=== PATIENT | male | born 1960 | race Two or more races ===

== ENCOUNTER 2017-01-11 06:42 | Emergency (ER) | payer MEDICAID ==
[~2017-01-11] VITALS: Ht 170.2 cm; Wt 121.1 kg
[~2017-01-11 06:42] MED LIST: AMLO5TAB2 PO; ASPI81TA27 PO; ENAL2.5T PO; HYDR25TA4 PO
[2017-01-11 08:38] LABS: Basophils # (auto) 0.1 uL; Basophils % (auto) 1.1 % (0.0-2.0); Eosinophils # (auto) 0.3 uL; Eosinophils % (auto) 3.9 % (0.0-7.0); Hematocrit 47.8 % (41.0-53.0); Hemoglobin 16.1 g/dL (13.5-17.5); Lymphocytes # (auto) 1.6 uL; Lymphocytes % (auto) 21.6 % (10.0-50.0); Mean Corpuscular Hemoglobin 29.1 pg (28.0-32.0); Mean Corpuscular Hgb Conc. 33.6 g/dL (32.0-36.0); Mean Corpuscular Volume 86.6 fL (80.0-100.0); Monocytes # (auto) 0.7 uL; Neutrophils # (auto) 4.8 uL; Neutrophils % (auto) 64.4 % (37.0-80.0); Nucleated Red Blood Cells % 0.1 %; Platelet Count (auto) 203 10^3/uL (140-450); Red Cell Distribution Width 13.4 % (11.8-14.3); White Blood Cell 7.5 10^3/uL (4.4-10.8)
[2017-01-11 08:53] LABS: INR 1.09 (0.9-1.15); Partial Thromboplastin Time 28.8 sec (22.64-33.71); Prothrombin Time 11.9 sec (9.37-12.3)
[2017-01-11 09:14] LABS: B-Type Natriuretic Peptide 5.69 pg/mL (0-100); Temperature: 23.3 C (20.0-25.0)
[2017-01-11 09:15] LABS: Albumin 4.2 g/dL (3.4-5.0); Alkaline Phosphatase 58 U/L (45-117); Anion Gap 7 (5-15); Aspartate Aminotransferase 28 U/L (15-37); BUN/Creatinine Ratio 16.7; Bilirubin, Total 0.8 mg/dL (0.2-1.0); Blood Urea Nitrogen 18 mg/dL (7-18); Calcium 9.9 mg/dL (8.5-10.1); Carbon Dioxide 28 mmol/L (21-32); Chloride 101 mmol/L (98-107); GFR African American 92 mL/min; GFR Non-African American 76 mL/min; Glucose 101 mg/dL (74-106); Potassium 4.3 mmol/L (3.5-5.1); Sodium 136 mmol/L (136-145); Total Protein 8.6 g/dL (6.4-8.2)
[2017-01-11] MEDS ORDERED: cefTRIAXone W LIDOCAINE 1 GM IM IM ONE (09:15)
[2017-01-11 10:30] VITALS: BP 126/86
== END 2017-01-11 10:36 | disposition home or self-care (01) ==
LOC: ER 06:44
DX: J32.8 Other chronic sinusitis (principal); J06.9 Acute upper respiratory infection, unspecified; I10 Essential (primary) hypertension; Z88.8 Allergy status to other drugs, medicaments and biological substances
CPT/HCPCS: 36415; 71020; 80053; 83880; 84484; 85025; 85610; 85730; 93005; 94761; 96372; 99285; J0696

== ENCOUNTER 2021-02-08 18:12 | Emergency (ER) | payer MEDICAID ==
[~2021-02-08] VITALS: Ht 170.2 cm; Wt 106.6 kg
[~2021-02-08 18:12] MED LIST changes: +AMLO-489 PO; -AMLO5TAB2 PO; +ASPI-543 PO; -ASPI81TA27 PO; -ENAL2.5T PO; +ENAL2.5T7 PO
[2021-02-08 23:30] VITALS: BP 119/77
[2021-02-08] MEDS ORDERED: TETANUS-DIPTH-ACEL PERTUSSIS 0.5ML SYR Tdap IM ONE (23:30)
[2021-02-08] MEDS ORDERED: cefTRIAXone SOD 1,000 MG VL IM ONE (23:30)
[2021-02-08] MEDS ORDERED: LIDOCAINE 1% HCL (LOCAL ANESTH.) INJ 20ML MDV IJ ONE (23:30)
== END 2021-02-08 23:47 | disposition home or self-care (01) ==
LOC: ER 18:16
DX: S61.412A Laceration without foreign body of left hand, initial encounter (principal); E66.9 Obesity, unspecified; I10 Essential (primary) hypertension; Z68.36 Body mass index [BMI] 36.0-36.9, adult; W22.8XXA Striking against or struck by other objects, initial encounter; Y93.89 Activity, other specified; Y92.89 Other specified places as the place of occurrence of the external cause; Y99.8 Other external cause status
CPT/HCPCS: 12001; 73130; 90471; 90715; 96372; 99284; J0696; J2001

== ENCOUNTER 2023-07-11 09:45 | Inpatient (IN) | payer MEDICAID ==
[~2023-07-11] VITALS: Ht 170.2 cm; Wt 101.8 kg
[~2023-07-11 09:45] MED LIST changes: -AMLO-489 PO; +AMLO1TAB22 PO; +ENAL1TAB42 PO; -ENAL2.5T7 PO
[2023-07-11 11:41] LABS: Basophils # (auto) 0.1 10 ^3/uL (0-0.2); Basophils % (auto) 0.9 % (0.0-2.0); Eosinophils # (auto) 0.1 10 ^3/uL (0-0.8); Eosinophils % (auto) 1.4 % (0.0-7.0); Hematocrit 49.5 % (41.0-53.0); Hemoglobin 16.9 g/dL (13.5-17.5); Lymphocytes # (auto) 2.3 10 ^3/uL (0.4-5.4); Lymphocytes % (auto) 22.3 % (10.0-50.0); Mean Corpuscular Hemoglobin 29.6 pg (28.0-32.0); Mean Corpuscular Hgb Conc. 34.1 g/dL (32.0-36.0); Mean Corpuscular Volume 86.8 fL (80.0-100.0); Monocytes # (auto) 0.9 10 ^3/uL (0-1.3); Monocytes % (auto) 9.1 % (0.0-12.0); Neutrophils # (auto) 6.9 10 ^3/uL (1.6-8.6); Neutrophils % (auto) 66.3 % (37.0-80.0); Nucleated Red Blood Cells % 0.4 %; Red Cell Distribution Width 13.5 % (11.8-14.3); White Blood Cell 10.4 10^3/uL (4.4-10.8)
[2023-07-11 12:03] LABS: Chloride 100 mmol/L (98-107); Potassium 4.2 mmol/L (3.5-5.1); Sodium 135 mmol/L (136-145)
[2023-07-11 12:04] LABS: Anion Gap 6 (5-15); Calcium 12.4 mg/dL (8.7-10.4); Carbon Dioxide 29 mmol/L (20-30)
[2023-07-11 12:09] LABS: BUN/Creatinine Ratio 19.4 (10.0-20.0); Blood Urea Nitrogen 27 mg/dL (9-23); Glucose 114 mg/dL (74-106); Lipase 73 U/L (12-53)
[2023-07-11] MEDS ORDERED: DOCUSATE SOD 100 MG CAP PO PRN (16:00)
[2023-07-11] MEDS ORDERED: ONDANSETRON HCL 4 MG/2 ML VIAL IV PRN (16:00)
[2023-07-11] MEDS ORDERED: DEXTROSE (50%) 50ML SYRG IV PRN (16:00)
[2023-07-11] MEDS ORDERED: MORPHINE SULFATE INJ 2 MG/ml SYRG IV PRN (16:00)
[2023-07-11] MEDS ORDERED: DICYCLOMINE HCL (10MG/ML) 2 ML AMPULE IM ONE (16:45)
[2023-07-11] MEDS ORDERED: DICYCLOMINE HCL 10 MG CAP PO SCH (18:00)
[2023-07-11 21:08] VITALS: PULSE 83; RESP 16; O2SAT 99
[2023-07-11] MEDS: SODIUM CHLORIDE 0.9% 1,000 ML IVB ONE (21:17)
[2023-07-11] MEDS: PROCHLORPERAZINE EDISYLATE 5 MG/ML 2ML VIAL IV ONE (21:24)
[2023-07-11] MEDS: DICYCLOMINE HCL (10MG/ML) 2 ML AMPULE IM ONE (21:24)
[2023-07-11] MEDS: TAMSULOSIN HYDROCHLORIDE 0.4 MG CAP PO SCH (21:24)
[2023-07-11] MEDS: PANTOPRAZOLE 40 MG/10 ML VIAL INJ IV ONE (21:24)
[2023-07-11] MEDS: ACCU-CHEK COMFORT CURVE STRIP VI SCH (21:32)
[2023-07-11] MEDS: InsuLIN REG 1unit/0.01ml Soln (100units/ml) SC SCH (21:32)
[2023-07-11] MEDS: SODIUM CHLORIDE 0.9% 1,000 ML IV SCH (21:54)
[2023-07-11] MEDS: DICYCLOMINE HCL 10 MG CAP PO SCH (23:02)
[2023-07-12] VITALS (8 sets, daily range): BP systolic 104–135; BP diastolic 57–82; PULSE 59–84; RESP 17–18; TEMP 97.5–98.5; O2SAT 92–96
[2023-07-12] MEDS ORDERED: MONT5CHW12 PO (01:29)
[2023-07-12] MEDS ORDERED: METF-370 PO (01:29)
[2023-07-12] MEDS ORDERED: GLIP5TAB21 PO (01:29)
[2023-07-12 06:50] LABS: Alanine Aminotransferase 47 U/L (7-40); Albumin 4.1 g/dL (3.2-4.8); Alkaline Phosphatase 50 U/L (46-116); Anion Gap 7 (5-15); Blood Urea Nitrogen 26 mg/dL (9-23); Calcium 10.2 mg/dL (8.7-10.4); Carbon Dioxide 23 mmol/L (20-30); Chloride 108 mmol/L (98-107); Glucose 96 mg/dL (74-106); Lipase 73 U/L (12-53); Potassium 3.5 mmol/L (3.5-5.1); Sodium 138 mmol/L (136-145)
[2023-07-12 06:51] LABS: Aspartate Aminotransferase 31 U/L (13-40); BUN/Creatinine Ratio 22.8 (10.0-20.0); Bilirubin, Total 1.4 mg/dL (0.2-1.0); Total Protein 6.7 g/dL (5.7-8.2)
[2023-07-12 06:57] LABS: Basophils # (auto) 0.1 10 ^3/uL (0-0.2); Basophils % (auto) 0.7 % (0.0-2.0); Eosinophils # (auto) 0.1 10 ^3/uL (0-0.8); Eosinophils % (auto) 1.8 % (0.0-7.0); Hematocrit 41.6 % (41.0-53.0); Hemoglobin 13.8 g/dL (13.5-17.5); Lymphocytes # (auto) 1.8 10 ^3/uL (0.4-5.4); Lymphocytes % (auto) 23.3 % (10.0-50.0); Mean Corpuscular Hemoglobin 28.9 pg (28.0-32.0); Mean Corpuscular Hgb Conc. 33.1 g/dL (32.0-36.0); Mean Corpuscular Volume 87.1 fL (80.0-100.0); Monocytes # (auto) 0.7 10 ^3/uL (0-1.3); Monocytes % (auto) 8.5 % (0.0-12.0); Neutrophils # (auto) 5.2 10 ^3/uL (1.6-8.6); Neutrophils % (auto) 65.7 % (37.0-80.0); Red Blood Cells 4.77 10^6/uL (4.5-5.90); Red Cell Distribution Width 13.4 % (11.8-14.3); White Blood Cell 7.8 10^3/uL (4.4-10.8)
[2023-07-12 07:50] LABS: Urine Bacteria None Seen /hpf (None Seen)
[2023-07-12 08:17] LABS: Amphetamine Screen, Urine Neg (NEGATIVE); Barbiturate Scree,Urine Neg (NEGATIVE); Benzodiazephine Screen, Urine Neg (NEGATIVE); Cocaine Screen, Urine Neg (NEGATIVE)
[2023-07-12 08:18] LABS: Cannabinoid Screen, Urine Pos (NEGATIVE); Creatinine, Urine 123.97 mg/dL (30.0-125.0); Opiate Scree,Urine Neg (NEGATIVE); Phencyclidine Screen, Urine Neg (NEGATIVE); Urine Blood Negative /uL (Negative); Urine Clarity Clear (Clear); Urine Color Light-Yellow (Yellow); Urine Hyaline Cast FEW /lpf (0 - 2); Urine Protein, UAD Negative (Negative); Urine Specific Gravity 1.019 (1.001-1.035); Urine Urobilinogen Normal (Negative); Urine WBC 1 /hpf (0 - 3)
[2023-07-12] MEDS: PANTOPRAZOLE 40 MG/10 ML VIAL INJ IV SCH (10:02)
[2023-07-12] MEDS ORDERED: LORA-622 PO (17:03)
[2023-07-12] MEDS ORDERED: ALEN70TA74 PO (17:03)
[2023-07-12] MEDS ORDERED: ATOR10TA PO (17:03)
[2023-07-12] MEDS ORDERED: HYDR-4902 PO (17:03)
[2023-07-12] MEDS ORDERED: DAPA1TAB4 PO (17:03)
[2023-07-12] MEDS ORDERED: PANT40TA2 PO (17:03)
[2023-07-13] VITALS (8 sets, daily range): BP systolic 123–137; BP diastolic 78–86; PULSE 53–81; RESP 17–22; TEMP 97.4–97.7; O2SAT 93–100
[2023-07-13 05:50] LABS: Basophils # (auto) 0 10 ^3/uL (0-0.2); Basophils % (auto) 0.8 % (0.0-2.0); Eosinophils # (auto) 0.1 10 ^3/uL (0-0.8); Eosinophils % (auto) 2.4 % (0.0-7.0); Hematocrit 42.3 % (41.0-53.0); Hemoglobin 14.4 g/dL (13.5-17.5); Lymphocytes # (auto) 1.3 10 ^3/uL (0.4-5.4); Lymphocytes % (auto) 21.1 % (10.0-50.0); Mean Corpuscular Hemoglobin 29.5 pg (28.0-32.0); Mean Corpuscular Volume 86.8 fL (80.0-100.0); Monocytes # (auto) 0.5 10 ^3/uL (0-1.3); Monocytes % (auto) 9.2 % (0.0-12.0); Neutrophils % (auto) 66.5 % (37.0-80.0); Nucleated Red Blood Cells % 0.1 %; Red Blood Cells 4.88 10^6/uL (4.5-5.90); Red Cell Distribution Width 13.2 % (11.8-14.3); White Blood Cell 5.9 10^3/uL (4.4-10.8)
[2023-07-13 06:11] LABS: Alanine Aminotransferase 48 U/L (7-40); Albumin 4.2 g/dL (3.2-4.8); Alkaline Phosphatase 56 U/L (46-116); Anion Gap 5 (5-15); Aspartate Aminotransferase 30 U/L (13-40); BUN/Creatinine Ratio 16.2 (10.0-20.0); Blood Urea Nitrogen 18 mg/dL (9-23); Calcium 11.2 mg/dL (8.7-10.4); Carbon Dioxide 26 mmol/L (20-30); Chloride 105 mmol/L (98-107); Glucose 98 mg/dL (74-106); Lipase 68 U/L (12-53); Magnesium 1.5 mg/dL (1.6-2.6); Potassium 4.1 mmol/L (3.5-5.1); Sodium 136 mmol/L (136-145)
[2023-07-13 06:12] LABS: Bilirubin, Total 1.4 mg/dL (0.2-1.0); Total Protein 7.1 g/dL (5.7-8.2)
[2023-07-13 08:06] LABS: Immunoglobulin A 344 mg/dL (61-437)
[2023-07-13] MEDS ORDERED: SODIUM CHLORIDE LOCK 10 ML ONE (08:23)
[2023-07-13] MEDS: CHOLESTYRAMINE 4 GM POWDER PO SCH (11:00)
[2023-07-13 11:09] LABS: INR 1.19 (0.9-1.15); Partial Thromboplastin Time 30.3 SEC (24.5-34.5); Prothrombin Time 12.4 sec (9.3-11.8)
[2023-07-13] MEDS: LIDOCAINE VISCOUS 2% 15ML UD ONE (12:37)
[2023-07-13] MEDS: diphenhdrAMINE HCL 50 MG/1 ML VL ONE (12:38)
[2023-07-13] MEDS: fentaNYL CITRATE 100 MCG/2 ML VL ONE (12:38)
[2023-07-13] MEDS: MIDAZOLAM HCL 5 MG/ML-1ML VIAL ONE (12:38)
[2023-07-13] MEDS: DOCUSATE SOD 100 MG CAP PO ONE (13:15)
[2023-07-14 09:05] LABS: Hepatitis B Surface Antigen Negative (Negative)
[2023-07-14 09:26] LABS: Hepatitis A Ab IgM Negative
[2023-07-14 09:27] LABS: Hepatitis B Core IgM Negative; Hepatitis C Antibody Negative (Negative)
[2023-07-15 06:06] LABS: Endomysial IgA Antibody Negative (Negative)
[2023-07-15 10:07] LABS: t-Transglutaminase (tTG) IgA <2 U/mL (0-3)
== END 2023-07-13 17:54 | disposition left against medical advice (07) | DRG 241 ==
LOC: ER 09:45 → OVERFLOW 16:47 → WEST WING 16:47
PROVIDERS: ADMIT Internal Medicine; ATTEND Emergency Medicine
PROC: 0DB78ZX Excision of Stomach, Pylorus, Via Natural or Artificial Opening Endoscopic, Diagnostic (ICD-10-PCS; 2023-07-13)
PROC: 0DB98ZX Excision of Duodenum, Via Natural or Artificial Opening Endoscopic, Diagnostic (ICD-10-PCS; principal; 2023-07-13 12:29)
DX: K29.71 Gastritis, unspecified, with bleeding (principal); N17.0 Acute kidney failure with tubular necrosis; E11.65 Type 2 diabetes mellitus with hyperglycemia; N20.0 Calculus of kidney; E83.52 Hypercalcemia; I10 Essential (primary) hypertension; G89.29 Other chronic pain; E66.9 Obesity, unspecified; K40.90 Unilateral inguinal hernia, without obstruction or gangrene, not specified as recurrent; K44.9 Diaphragmatic hernia without obstruction or gangrene; K76.0 Fatty (change of) liver, not elsewhere classified; N40.0 Benign prostatic hyperplasia without lower urinary tract symptoms; Z53.29 Procedure and treatment not carried out because of patient's decision for other reasons; Z88.8 Allergy status to other drugs, medicaments and biological substances; Z79.899 Other long term (current) drug therapy; Z82.49 Family history of ischemic heart disease and other diseases of the circulatory system; Z83.3 Family history of diabetes mellitus; Z79.82 Long term (current) use of aspirin; Z68.35 Body mass index [BMI] 35.0-35.9, adult
CPT/HCPCS: 36415; 43239; 74176; 80048; 80053; 80074; 80307; 81001; 82040; 82140; 82306; 82570; 82607; 82784; 82962; 82977; 83516; 83605; 83690; 83735; 83970; 84300; 84443; 85025; 85610; 85730; 86255; C9113; G0378; J2250